=== PATIENT | male | born 1955 | race Caucasian/White ===

== ENCOUNTER 2017-10-26 08:50 | Day surgery (SDC) | payer MEDICARE, MEDICAID ==
[~2017-10-26 08:50] MED LIST: Midazolam 1 MG/ML 2 ML SDV ONE; fentaNYL 100 MCG/2 ML SDV ONE
[2017-10-26] MEDS ORDERED: fentaNYL 100 MCG/2 ML SDV IV ONE ×3 (08:51→09:57)
[2017-10-26] MEDS ORDERED: Midazolam 1 MG/ML 2 ML SDV IV ONE ×7 (08:51→10:06)
[2017-10-26] MEDS ORDERED: Lactated Ringers 1,000 ML IV SCH (09:30)
[2017-10-26 13:53] VITALS: BP 139/76
--- NOTE | 2017-10-26 18:39 | OR ---
DATE: 10/26/2017 PREOPERATIVE DIAGNOSIS: Iron-deficiency anemia. POSTOPERATIVE DIAGNOSIS: Iron-deficiency anemia. PROCEDURE: Total colonoscopy. ANESTHESIA: Conscious sedation with IV Versed and fentanyl. SPECIMEN: None. OPERATIVE FINDINGS: Normal colonoscopy with an occasional between diverticula. RECOMMENDATION: Followup colonoscopy is needed. INDICATION FOR PROCEDURE: This 62-year-old male has a 3 g drop in hemoglobin and iron-deficiency anemia requiring IV infusion. He also has had a 20 or so pound weight loss unexplained. He has no bowel function changes and no rectal bleeding. PROCEDURE IN DETAIL: After adequate preparation, a colonoscope was inserted into the rectum. This was easily passed all the way to the cecum. Confirmation of the cecum was made by visualization of the ileocecal valve and palpation in the right lower quadrant. The bowel prep was adequate. He had a moderate amount of retained fluid, but most of this was suctioned clear to give a good exam. I might have missed a few little small polyps, but certainly nothing gross that would explain his anemia. His diverticular disease is not significant. Air was suctioned from the colon or rectum, and the scope was removed. [facility] /[id number]
== END 2017-10-26 13:20 | disposition home or self-care (01) ==
LOC: DL.ENDO 08:50
PROVIDERS: ATTEND Surgery
DX: D50.9 Iron deficiency anemia, unspecified (principal); K63.5 Polyp of colon; Z88.0 Allergy status to penicillin; Z79.899 Other long term (current) drug therapy
CPT/HCPCS: 45378; J2250; J3010; J7120

== ENCOUNTER 2021-02-17 15:39 | Emergency (ER) | payer MEDICARE, MEDICAID ==
[2021-02-17] MEDS ORDERED: Sodium Chloride 0.9% 10 ML Syringe FLUSH PRN (16:37)
[2021-02-17] MEDS ORDERED: Albuterol/Ipratropium 3.0-0.5 MG/3 ML Neb Soln NEB ONE (16:39)
[2021-02-17] MEDS ORDERED: Sodium Chloride 0.9% 500 ML IV SCH (16:45)
--- NOTE | 2021-02-17 16:50 | EDM.PDOC ---
ED HPI GENERAL MEDICAL PROBLEM - General Chief Complaint: General Stated Complaint: SENT FROM [facility] Time Seen by Provider: 02/17/21 16:46 Source of Information: Reports: Patient History Limitations: Reports: No Limitations - History of Present Illness INITIAL COMMENTS - FREE TEXT/NARRATIVE: 65 y/o M c/o cough, sob for 2 weeks. Pt is a resident of the [facility] and normally ambulates with a walker or wheelchair. Pt is a heavy smoker and has smoked for over 50 years. Is not on o2 at home. Has been coughing up green sputum. Denies butler, vision prob, cp, abd pn, ext pain, recent trauma, drugs, etoh. - Related Data Allergies Allergy/AdvReac Type Severity Reaction Status Date / Time Penicillins Allergy Rash Verified 02/17/21 17:24 Home Meds: Home Meds Lisinopril 10 mg PO DAILY 08/21/13 [History] Fish Oil/Chandler-3 Fatty Acids [Fish Oil 1,000 MG] 1,000 mg PO DAILY 10/25/17 [History] Aspirin 325 mg PO BEDTIME 02/26/18 [History] Calcium Carbonate/Vitamin D3 [Calcium 600 + Vit D 200] 200 - 600 units PO DAILY 02/26/18 [History] Cholecalciferol (Vitamin D3) [Vitamin D3] 125 mcg PO .NOON 02/17/21 [History] Multivitamin 1 tab PO DAILY 02/17/21 [History] Past Medical History HEENT History: Reports: Cataract, Impaired Vision Cardiovascular History: Reports: Hypertension Respiratory History: Reports: COPD, SOB Gastrointestinal History: Reports: None Genitourinary History: Reports: None Musculoskeletal History: Reports: None Neurological History: Reports: CVA Other Neuro History: Right side affected Psychiatric History: Reports: None Endocrine/Metabolic History: Reports: None Hematologic History: Reports: Anemia, Blood Transfusion(s), Iron Deficiency Immunologic History: Reports: None Oncologic (Cancer) History: Reports: Prostate Dermatologic History: Reports: None - Infectious Disease History Infectious Disease History: Reports: Chicken Pox, Measles, Mumps - Past Surgical History Head Surgeries/Procedures: Reports: None HEENT Surgical History: Reports: Cataract Surgery Other HEENT Surgeries/Procedures: upcoming cataract surgery Cardiovascular Surgical History: Reports: None Respiratory Surgical History: Reports: None GI Surgical History: Reports: None, Colonoscopy Male Surgical History: Reports: Other (See Below) Other Male Surgeries/Procedures: Hx of prostate cancer Social & Family History - Family History Family Medical History: No Pertinent Family History - Caffeine Use Caffeine Use: Reports: Coffee Other Caffeine Use: 4 OZ DAILY Caffeine Use Comment: 48oz. daily - Living Situation & Occupation Living situation: Reports: , with Family Occupation: Employed ED ROS GENERAL - Review of Systems Review Of Systems: Comprehensive ROS is negative, except as noted in HPI. ED EXAM, GENERAL - Physical Exam Exam: See Below Exam Limited By: No Limitations General Appearance: Alert, No Apparent Distress, Thin Eye Exam: Bilateral Eye: PERRL Nose: Normal Inspection, Normal Mucosa, No Blood Throat/Mouth: Normal Inspection, Normal Lips, Normal Teeth, Normal Gums, Normal Oropharynx, Normal Voice, No Airway Compromise Head: Atraumatic, Normocephalic Neck: Normal Inspection, Supple, Non-Tender, Full Range of Motion Respiratory/Chest: Rhonchi (Rhonci bilaterally worse over the R lung.) Cardiovascular: Irregularly Irregular GI/Abdominal: Soft, Non-Tender (Male) Exam: Deferred Rectal (Males) Exam: Deferred Back Exam: Normal Inspection, Full Range of Motion Extremities: Normal Inspection, Normal Range of Motion, Non-Tender, No Pedal Edema, Normal Capillary Refill Neurological: Alert, Oriented Psychiatric: Normal Affect, Normal Mood Skin Exam: Warm, Dry, Intact #1 Interpretation EKG Date: 02/17/21 Time: 17:27 Rhythm: A-Flutter Rate (Beats/Min): 111 [place]: Normal P-Wave: Variable QRS: Normal ST-T: Normal QT: Normal Course - Vital Signs Last Recorded V/S: Last Vital Signs Temp 98.3 F 02/17/21 16:19 Pulse 114 H 02/17/21 16:19 Resp 28 H 02/17/21 16:19 BP 135/98 H 02/17/21 16:19 Pulse Ox 88 L 02/17/21 16:19 - Orders/Labs/Meds Orders: Active Orders 24 hr Category Date Time Status Peripheral IV Care [RC] . DIRECTED Care 02/17/21 16:38 Active RT Aerosol Therapy [RC] ASDIRECTED Care 02/17/21 16:39 Active Chest 1V Frontal [CR] Urgent Exams 02/17/21 16:47 Ordered CULTURE BLOOD [BC] Stat Lab 02/17/21 16:53 Results CULTURE BLOOD [BC] Stat Lab 02/17/21 16:59 Results Azithromycin [Zithromax] 500 mg Med 02/17/21 18:14 Active Sodium Chloride 0.9% [Normal Saline AdvBag] 250 ml IV ONETIME Sodium Chloride 0.9% [Saline Flush] Med 02/17/21 16:37 Active 10 ml FLUSH ASDIRECTED PRN Blood Culture x2 Reflex Set [OM.PC] Stat Oth 02/17/21 16:38 Ordered Peripheral IV Insertion Adult [OM.PC] Routine Oth 02/17/21 16:37 Ordered Medication Orders Azithromycin 500 mg/ Sodium (Chloride) 250 mls @ 250 mls/hr IV ONETIME ONE Stop: 02/17/21 19:13 Last Admin: 02/17/21 18:52 Dose: 250 mls/hr Documented by: HOMERO Sodium Chloride (Sodium Chloride 0.9% 10 Ml Syringe) 10 ml FLUSH ASDIRECTED PRN PRN Reason: Keep Vein Open Last Admin: 02/17/21 17:36 Dose: 10 ml Documented by: TWILA Labs: Laboratory Tests 02/17/21 02/17/21 02/17/21 Range/Units 16:59 16:59 16:59 WBC 16.4 H (5.0-10.0) 10^3/uL RBC 5.98 (4.6-6.2) 10^6/uL Hgb 17.6 (14.0-18.0) g/dL Hct 54.3 H (40.0-54.0) % MCV 90.8 (80-100) fL MCH 29.4 (27.0-34.0) pg MCHC 32.4 L (33.0-35.0) g/dL Plt Count 192 (150-450) 10^3/uL Neut % (Auto) 87.2 H (42.2-75.2) % Lymph % (Auto) 5.7 L (20.5-50.1) % [place] % (Auto) 6.9 (2-8) % Eos % (Auto) 0.1 L (1.0-3.0) % Baso % (Auto) 0.1 (0.0-1.0) % Sodium 143 (136-145) mmol/L Potassium 4.1 (3.5-5.1) mmol/L Chloride 106 (98-107) mmol/L Carbon Dioxide 27 (21-32) mmol/L Anion Gap 14.1 H (7-13) mEq/L BUN 26 H (7-18) mg/dL Creatinine 0.88 (0.70-1.30) mg/dL Est Cr Clr Drug Dosing TNP Estimated GFR (MDRD) > 60 BUN/Creatinine Ratio 29.5 (No establ ref range) Glucose 122 H (70-99) mg/dL Lactic Acid 1.8 (0.4-2.0) mmol/L Calcium 9.8 (8.5-10.1) mg/dL Total Bilirubin 1.5 H (0.2-1.0) mg/dL AST 15 (15-37) U/L ALT 21 (16-63) U/L Alkaline Phosphatase 123 H (46-116) U/L C-Reactive Protein 5.8 H (0.0-0.9) mg/dL B-Natriuretic Peptide (0-100) pg/ml Total Protein 6.4 (6.4-8.2) g/dL Albumin 3.1 L (3.4-5.0) g/dL Globulin 3.3 Albumin/Globulin Ratio 0.94 TSH, Ultra Sensitive 3.86 H (0.36-3.74) uIU/mL SARS CoV-2 RNA Rapid ANDREZ (NEGATIVE) 02/17/21 02/17/21 Range/Units 16:59 17:02 WBC (5.0-10.0) 10^3/uL RBC (4.6-6.2) 10^6/uL Hgb (14.0-18.0) g/dL Hct (40.0-54.0) % MCV (80-100) fL MCH (27.0-34.0) pg MCHC (33.0-35.0) g/dL Plt Count (150-450) 10^3/uL Neut % (Auto) (42.2-75.2) % Lymph % (Auto) (20.5-50.1) % [place] % (Auto) (2-8) % Eos % (Auto) (1.0-3.0) % Baso % (Auto) (0.0-1.0) % Sodium (136-145) mmol/L Potassium (3.5-5.1) mmol/L Chloride (98-107) mmol/L Carbon Dioxide (21-32) mmol/L Anion Gap (7-13) mEq/L BUN (7-18) mg/dL Creatinine (0.70-1.30) mg/dL Est Cr Clr Drug Dosing Estimated GFR (MDRD) BUN/Creatinine Ratio (No establ ref range) Glucose (70-99) mg/dL Lactic Acid (0.4-2.0) mmol/L Calcium (8.5-10.1) mg/dL Total Bilirubin (0.2-1.0) mg/dL AST (15-37) U/L ALT (16-63) U/L Alkaline Phosphatase (46-116) U/L C-Reactive Protein (0.0-0.9) mg/dL B-Natriuretic Peptide 394 H (0-100) pg/ml Total Protein (6.4-8.2) g/dL Albumin (3.4-5.0) g/dL Globulin Albumin/Globulin Ratio TSH, Ultra Sensitive (0.36-3.74) uIU/mL SARS CoV-2 RNA Rapid ANDREZ Negative (NEGATIVE) Meds: Medications Generic Name Dose Route Start Last Admin Trade Name Freq PRN Reason Stop Dose Admin Azithromycin 500 mg/ Sodium 250 mls @ 250 mls/hr 02/17/21 18:14 02/17/21 18:52 Chloride IV 02/17/21 19:13 250 mls/hr ONETIME ONE Administration Sodium Chloride 10 ml 02/17/21 16:37 02/17/21 17:36 Sodium Chloride 0.9% 10 Ml Syringe FLUSH 10 ml ASDIRECTED PRN Administration Keep Vein Open Discontinued Medications Generic Name Dose Route Start Last Admin Trade Name Freq PRN Reason Stop Dose Admin Albuterol/Ipratropium 3 ml 02/17/21 16:39 02/17/21 17:35 Albuterol/Ipratropium 3.0-0.5 Mg/3 Ml Neb Soln NEB 02/17/21 16:40 3 ml ONETIME ONE Administration Enoxaparin Sodium 50 mg 02/17/21 17:43 02/17/21 18:01 Enoxaparin 60 Mg/0.6 Ml Syringe SUBCUT 02/17/21 17:44 50 mg ONETIME ONE Administration Sodium Chloride 500 mls @ 999 mls/hr 02/17/21 16:45 Normal Saline IV .BOLUS SANGEETA Sodium Chloride 1,000 mls @ 999 mls/hr 02/17/21 17:35 02/17/21 17:37 Normal Saline IV 02/17/21 18:35 999 mls/hr .BOLUS ONE Administration - Re-Assessments/Exams Free Text/Narrative Re-Assessment/Exam: 02/17/21 18:41 The pts leukocytosis and Rhonchus breath sounds indicate a PNA. I have started the pt on azithromycin. The pt appears to have new onset A-flutter of unknown duration. Because of the Aflutter i initiated anticoagulation. I have spoken with DAIRY TECHNOLOGIST Lori Oswald at [facility] who accepted the pt for lateral transfer for further care. The pt will be transported ALS to [place] via ground ambulance. 02/17/21 19:05 Departure - Departure Time of Disposition: 18:44 Disposition: DC/Tfer to [facility] 02 Condition: Good Clinical Impression: COPD (chronic obstructive pulmonary disease) Qualifiers: COPD type: COPD with acute lower respiratory infection Qualified Code(s): J44.0 - Chronic obstructive pulmonary disease with (acute) lower respiratory infection Atrial flutter Qualifiers: Atrial flutter type: unspecified Qualified Code(s): I48.92 - Unspecified atrial flutter - Discharge Information *PRESCRIPTION DRUG MONITORING PROGRAM REVIEWED*: Not Applicable *COPY OF PRESCRIPTION DRUG MONITORING REPORT IN PATIENT JERRY: Not Applicable Referrals: PCP,None [Primary Care Provider] - Forms: ED Department Discharge, Interfacility Transfer EMTALA Sepsis Event Note (ED) - Focused Exam Vital Signs: Vital Signs Temp Pulse Resp BP Pulse Ox 02/17/21 16:19 98.3 F 114 H 28 H 135/98 H 88 L - My Orders Last 24 Hours: My Active Orders 02/17/21 16:37 Sodium Chloride 0.9% [Saline Flush] 10 ml FLUSH ASDIRECTED PRN Peripheral IV Insertion Adult [OM.PC] Routine 02/17/21 16:38 Peripheral IV Care [RC] . DIRECTED Blood Culture x2 Reflex Set [OM.PC] Stat 02/17/21 16:39 RT Aerosol Therapy [RC] ASDIRECTED 02/17/21 16:47 Chest 1V Frontal [CR] Urgent 02/17/21 16:53 CULTURE BLOOD [BC] Stat 02/17/21 16:59 CULTURE BLOOD [BC] Stat 02/17/21 18:14 Azithromycin [Zithromax] 500 mg Sodium Chloride 0.9% [Normal Saline AdvBag] 250 ml IV ONETIME - Assessment/Plan Last 24 Hours: My Active Orders 02/17/21 16:37 Sodium Chloride 0.9% [Saline Flush] 10 ml FLUSH ASDIRECTED PRN Peripheral IV Insertion Adult [OM.PC] Routine 02/17/21 16:38 Peripheral IV Care [RC] . DIRECTED Blood Culture x2 Reflex Set [OM.PC] Stat 02/17/21 16:39 RT Aerosol Therapy [RC] ASDIRECTED 02/17/21 16:47 Chest 1V Frontal [CR] Urgent 02/17/21 16:53 CULTURE BLOOD [BC] Stat 02/17/21 16:59 CULTURE BLOOD [BC] Stat 02/17/21 18:14 Azithromycin [Zithromax] 500 mg Sodium Chloride 0.9% [Normal Saline AdvBag] 250 ml IV ONETIME
[2021-02-17 17:33] LABS: ANION GAP 14.1 mEq/L (7-13); CHLORIDE,CL 106 mmol/L (98-107); SODIUM,NA 143 mmol/L (136-145)
[2021-02-17 17:34] VITALS: BP 135/98; PULSE 114
--- NOTE | 2021-02-17 17:34 | CR ---
PROCEDURE INFORMATION: Exam: XR Chest Exam date and time: 02/17/2021 5:00 PM Age: 65 years old Clinical indication: Other: Cough, SOB TECHNIQUE: Imaging protocol: XR of the chest. Views: 2 views. COMPARISON: No relevant prior studies available. FINDINGS: Lungs: Pulmonary vasculature appears congested. Bibasilar interstitial prominence. Pleural spaces: Small bilateral pleural effusions larger on right. Heart/Mediastinum: Cardiomegaly. Bones/joints: Healed right rib fractures. IMPRESSION: Findings suspicious for acute CHF.
[2021-02-17] MEDS ORDERED: Sodium Chloride 0.9% 1,000 ML IV ONE (17:35)
[2021-02-17] MEDS ORDERED: Enoxaparin 60 MG/0.6 ML Syringe SUBCUT ONE (17:43)
[2021-02-17] MEDS ORDERED: Azithromycin 500 MG in Sodium Chloride 0.9% 250 ML IV ONE (18:14)
== END 2021-02-17 19:10 ==
LOC: DL.ED 15:39
DX: J44.0 Chronic obstructive pulmonary disease with (acute) lower respiratory infection (principal); I48.92 Unspecified atrial flutter; I10 Essential (primary) hypertension; Z88.0 Allergy status to penicillin; Z79.899 Other long term (current) drug therapy; Z79.82 Long term (current) use of aspirin; Z20.822 Contact with and (suspected) exposure to COVID-19
CPT/HCPCS: 36415; 71046; 80053; 83605; 83880; 84443; 85025; 86140; 87040; 93005; 96365; 96372; 99285-25; J0456; J1650; J7030; J7050; J7620-GY; U0002